=== PATIENT | female | born 1980 | race American Indian/Alaskan Native ===

== ENCOUNTER 2019-12-18 07:22 | Emergency (ER) | payer SELFPAY ==
[2019-12-18 09:29] VITALS: BP 146/88
--- NOTE | 2019-12-18 10:08 | XRay Report ---
LUMBAR SPINE 3 VIEWS INDICATION / CLINICAL INFORMATION: pain s/p fall. COMPARISON: None available. FINDINGS: VERTEBRAE: No acute fracture. No significant malalignment. DISC SPACES / FACET JOINTS:L5-S1 degenerative disc disease with disc space narrowing and vacuum disc phenomenon. Lower lumbar facet joint sclerosis. PARASPINAL SOFT TISSUES:No significant abnormality. ADDITIONAL FINDINGS: None. IMPRESSION: 1. No acute findings. 2. L5-S1 degenerative disc disease and lower lumbar facet joint arthropathy. Signer Name: Walt Lazar MD Signed: 12/18/2019 10:03 AM Workstation Name: [id number]
[2019-12-18] MEDS ORDERED: HYDROcodone/ACETAMINOPHEN 10-325MG TAB PO ONE (11:41)
--- NOTE | 2019-12-18 12:02 | Emergency Department Report ---
ED Fall HPI - General Chief Complaint: Back Pain/Injury Stated Complaint: LOW BACK PAIN Time Seen by Provider: 12/18/19 09:05 Source: patient Mode of arrival: Ambulatory - History of Present Illness Initial Comments: This is a 39-year-old female nontoxic, well nourished in appearance, no acute signs of distress presents to the ED with c/o of acute lower back pain. Patient stated that she had a fall and landed on her lower back at work 4 days ago. Patient denies any radiation of pain. Patient denies any trauma. Denies any bladder or bowel instability. Patient denies any urinary symptoms. Denies any fever, chills, nausea, vomiting, headache, stiff neck, chest pain or shortness of breath. Patient denies any numbness or tingling. Denies any allergies. Denies significant past medical history. MD Complaint: fall -: days(s) (4) Place Fall Occurred: work Loss of Consciousness: none Prolonged Down Time?: no Symptoms Prior to Fall: none Severity: mild Severity scale (0 -10): 8 Quality: aching Context: tripped/slipped Associated Symptoms: denies. denies: headache, neck pain, numbness, weakness, chest paint, shortness of breath, abdominal pain, hematuria, unable to walk, lightheaded, vertigo, confusion - Related Data Previous Rx's Medication Instructions Recorded Last Taken Type Cyclobenzaprine [Flexeril] 10 mg PO QHS PRN #10 tablet 12/18/19 Unknown Rx Naproxen 500 mg PO Q12H PRN #20 tablet 12/18/19 Unknown Rx Allergies Allergy/AdvReac Type Severity Reaction Status Date / Time No Known Allergies Allergy Unverified 12/18/19 07:26 ED Review of Systems ROS: Stated complaint: LOW BACK PAIN Other details as noted in HPI Constitutional: denies: chills, fever Eyes: denies: eye pain, eye discharge, vision change ENT: denies: ear pain, throat pain Respiratory: denies: cough, shortness of breath, wheezing Cardiovascular: denies: chest pain, palpitations Endocrine: no symptoms reported Gastrointestinal: denies: abdominal pain, nausea, diarrhea Genitourinary: denies: urgency, dysuria, discharge Musculoskeletal: back pain. denies: joint swelling, arthralgia Skin: denies: rash, lesions Neurological: denies: headache, weakness, paresthesias Psychiatric: denies: anxiety, depression Hematological/Lymphatic: denies: easy bleeding, easy bruising ED Past Medical Hx - Past Medical History Previous Medical History?: No - Surgical History Past Surgical History?: Yes Additional Surgical History: Hysterectomy. Right foot - Medications Home Medications: Home Medications Medication Instructions Recorded Confirmed Last Taken Type Cyclobenzaprine [Flexeril] 10 mg PO QHS PRN #10 tablet 12/18/19 Unknown Rx Naproxen 500 mg PO Q12H PRN #20 tablet 12/18/19 Unknown Rx ED Physical Exam - General Limitations: No Limitations General appearance: alert, in no apparent distress - Head Head exam: Present: atraumatic, normocephalic - Neck Neck exam: Present: normal inspection, full ROM. Absent: tenderness, meningismus, lymphadenopathy - Respiratory Respiratory exam: Present: normal lung sounds bilaterally. Absent: respiratory distress, wheezes, rales, rhonchi, stridor, chest wall tenderness, accessory muscle use, decreased breath sounds, prolonged expiratory - Cardiovascular Cardiovascular Exam: Present: regular rate, normal rhythm, normal heart sounds. Absent: bradycardia, tachycardia, irregular rhythm, systolic murmur, diastolic murmur, rubs, gallop - Extremities Exam Extremities exam: Present: normal inspection, full ROM, normal capillary refill. Absent: tenderness - Back Exam Back exam: Present: normal inspection, full ROM, paraspinal tenderness (lumbar paraspinal). Absent: tenderness, CVA tenderness (R), CVA tenderness (L), muscle spasm, vertebral tenderness, rash noted - Expanded Back Exam Expanded Back exam: Absent: saddle anesthesia Back exam: Negative Straight Leg Raising: Left, Right - Neurological Exam Neurological exam: Present: alert, oriented X3, normal gait - Psychiatric Psychiatric exam: Present: normal affect, normal mood - Skin Skin exam: Present: warm, dry, intact, normal color. Absent: rash ED Course Vital Signs 12/18/19 12/18/19 07:28 09:19 Temperature 97.9 F 98.6 F Pulse Rate 71 68 Respiratory 16 18 Rate Blood Pressure 138/89 146/88 O2 Sat by Pulse 100 100 Oximetry - Reevaluation(s) Reevaluation #1: 12/18/19 12:01 Patient is speaking in full sentences with no signs of distress noted. ED Medical Decision Making - Medical Decision Making This is a 39-year-old female that presents with low back strain. Patient is stable was examined by me. There is no spinal tenderness. There is no cauda equina syndrome during examination. No bladder or bowel instability. Xrays obtained and dictated by radiologist with no acute injuries or fracture. Patient is notified of the results with no questions noted by the patient. Patient received [place] in the ED which stated that her symptoms has resolved and subsided. Stated daugther will drive patient home after discharge due to possible drowsiness. Patient is discharged with muscle relaxant and Motrin. Patient was instructed not to operate any machinery while taking muscle relaxant as they cause her drowsiness. Patient was referred to Follow-up with a primary care doctor in 3-5 days or if symptoms worsen and continue return to emergency room as soon as possible. At time of discharge, the patient does not seem toxic or ill in appearance. No acute signs of distress noted. Patient agrees to discharge treatment plan of care. No further questions noted by the patient. This chart is dictated with using [employer] Dictation Program Critical care attestation.: If time is entered above; I have spent that time in minutes in the direct care of this critically ill patient, excluding procedure time. ED Disposition Clinical Impression: Low back strain Qualifiers: Encounter type: initial encounter Qualified Code(s): S39.012A - Strain of muscle, fascia and tendon of lower back, initial encounter Fall Qualifiers: Encounter type: initial encounter Qualified Code(s): W19.XXXA - Unspecified fall, initial encounter Disposition: DC- TO HOME OR SELFCARE Is pt being admited?: No Does the pt Need Aspirin: No Condition: Stable Instructions: Muscle Strain (ED), Cyclobenzaprine (By mouth) Additional Instructions: Follow-up with a primary care doctor in 3-5 days or if symptoms worsen and continue return to emergency room as soon as possible. Take ibuprofen and Flexeril as prescribed. Do not operate heavy machinery while taking Flexeril due to sedation Prescriptions: Cyclobenzaprine [Flexeril] 10 mg PO QHS PRN #10 tablet PRN Reason: Muscle Spasm Naproxen 500 mg PO Q12H PRN #20 tablet PRN Reason: Pain, Moderate (4-6) Referrals: IAM MOHAN [Primary Care Provider] - 3-5 Days [facility], [Referring] - 3-5 Days ISAEL NEGRETE MD [Staff Physician] - 3-5 Days [facility] [Provider Group] - 3-5 Days Forms: Work/School Release Form(ED)
--- NOTE | 2019-12-19 09:53 | XRay Report ---
XR spine thoracic 2V INDICATION / CLINICAL INFORMATION: Back pain after fall. COMPARISON: None available. FINDINGS: BONES/JOINT(S): No acute fracture or subluxation. Mild diffuse spondylosis with small anterior and la teral osteophytes. SOFT TISSUES: No significant abnormality. ADDITIONAL FINDINGS: None. Signer Name: Carlos Mckee MD Signed: 12/18/2019 9:44 AM Workstation Name: [id number]
== END 2019-12-18 12:13 | disposition home or self-care (01) ==
LOC: ED 07:22
DX: S39.012A Strain of muscle, fascia and tendon of lower back, initial encounter (principal); Z79.899 Other long term (current) drug therapy; Z90.710 Acquired absence of both cervix and uterus; W18.30XA Fall on same level, unspecified, initial encounter; Y93.89 Activity, other specified; Y92.89 Other specified places as the place of occurrence of the external cause; Y99.8 Other external cause status
CPT/HCPCS: 72070; 72100; 99283

== ENCOUNTER 2020-06-07 07:29 | Emergency (ER) | payer OTHER ==
[2020-06-07 07:51] VITALS: BP 141/96
[2020-06-07] MEDS ORDERED: HYDROcodone/ACETAMINOPHEN 5-325 MG TAB PO ONE (08:17)
--- NOTE | 2020-06-07 08:59 | XRay Report ---
LEFT KNEE 3 VIEW(S) INDICATION / CLINICAL INFORMATION: fall left knee pain COMPARISON: None available. FINDINGS: BONES / JOINT(S): No acute fracture or subluxation. No significant arthritis. SOFT TISSUES: No significant abnormality. ADDITIONAL FINDINGS: None. IMPRESSION: No acute osseous abnormality. Signer Name: Johnathon Choudhary MD Signed: 06/07/2020 8:54 AM Workstation Name: [id number]
--- NOTE | 2020-06-07 09:35 | Vascular Lab Report ---
DUPLEX DOPPLER LOWER EXTREMITY VEINS, BILATERAL INDICATION / CLINICAL INFORMATION: LLE edema. TECHNIQUE: Duplex doppler imaging was performed through the veins of both lower extremities using venous surekha woody and other maneuvers. COMPARISON: None available. FINDINGS: RIGHT COMMON FEMORAL VEIN: Negative. RIGHT FEMORAL VEIN: Negative. RIGHT POPLITEAL VEIN: Negative. RIGHT CALF VEINS: Negative. LEFT COMMON FEMORAL VEIN: Negative. LEFT FEMORAL VEIN: Negative. LEFT POPLITEAL VEIN: Negative. LEFT CALF VEINS: Negative. ADDITIONAL FINDINGS: None. IMPRESSION: No sonographic evidence for DVT in either lower extremity. Signer Name: Johnathon Choudhary MD Signed: 06/07/2020 9:31 AM Workstation Name: [email or web address] [email or web address]
--- NOTE | 2020-06-07 09:48 | Emergency Department Report ---
ED Extremity Problem HPI - General Chief complaint: Extremity Injury, Lower Stated complaint: LT HIP/KNEE Time Seen by Provider: 06/07/20 07:57 Source: patient, family Mode of arrival: Ambulatory Limitations: No Limitations - History of Present Illness Initial comments: Patient is a 40-year-old female presents emergency room with complaints of left knee pain that began 3 days ago. She states that she was walking down the steps and felt her knee give out on her and she fell onto her left knee. She states that she has had pain since then. She states that she is ambulatory. Patient states that for about a week and a half she has noticed left lower leg edema. She denies any calf pain, numbness, weakness. Patient states that she did have an injection in this knee approximately 2 months ago. She denies any past medical history. No allergies to medications. She states that she had a hysterectomy. Severity scale (0 -10): 6 - Related Data Previous Rx's Medication Instructions Recorded Last Taken Type Cyclobenzaprine [Flexeril 10 MG 10 mg PO QHS PRN #10 tablet 12/18/19 Unknown Rx TAB] Naproxen 500 mg PO Q12H PRN #20 tablet 12/18/19 Unknown Rx Apixaban [Eliquis] 2.5 mg PO Q12HR #30 tablet 04/28/20 Unknown Rx Ascorbic Acid [Vitamin C] 1,000 mg PO BID #60 tablet 04/28/20 Unknown Rx Zinc Sulfate 220 mg PO DAILY #30 tablet 04/28/20 Unknown Rx dexAMETHasone [Decadron] 6 mg PO Q12H #6 tablet 04/28/20 Unknown Rx Menthol/Camphor [Phyllis [place] 1 applicatio TP BID #1 oint...g. 06/07/20 Unknown Rx Ointment] Naproxen [EC-Naprosyn] 500 mg PO BID PRN #14 tablet. 06/07/20 Unknown Rx Allergies Allergy/AdvReac Type Severity Reaction Status Date / Time No Known Allergies Allergy Unverified 12/18/19 07:26 ED Review of Systems ROS: Stated complaint: LT HIP/KNEE Other details as noted in HPI Comment: All other systems reviewed and negative ED Past Medical Hx - Past Medical History Previous Medical History?: No Hx Congestive Heart Failure: No Hx Diabetes: No Hx Asthma: No Hx COPD: No Hx HIV: No Additional medical history: COVID19 - Surgical History Past Surgical History?: No Additional Surgical History: Hysterectomy. Right foot - Social History Smoking Status: Never Smoker Substance Use Type: None - Medications Home Medications: Home Medications Medication Instructions Recorded Confirmed Last Taken Type Cyclobenzaprine [Flexeril 10 MG 10 mg PO QHS PRN #10 tablet 12/18/19 Unknown Rx TAB] Naproxen 500 mg PO Q12H PRN #20 tablet 12/18/19 Unknown Rx Apixaban [Eliquis] 2.5 mg PO Q12HR #30 tablet 04/28/20 Unknown Rx Ascorbic Acid [Vitamin C] 1,000 mg PO BID #60 tablet 04/28/20 Unknown Rx Zinc Sulfate 220 mg PO DAILY #30 tablet 04/28/20 Unknown Rx dexAMETHasone [Decadron] 6 mg PO Q12H #6 tablet 04/28/20 Unknown Rx Menthol/Camphor [Phyllis [place] 1 applicatio TP BID #1 oint...g. 06/07/20 Unknown Rx Ointment] Naproxen [EC-Naprosyn] 500 mg PO BID PRN #14 tablet.dr 06/07/20 Unknown Rx ED Physical Exam - General Limitations: No Limitations General appearance: alert, in no apparent distress - Head Head exam: Present: atraumatic, normocephalic - Eye Eye exam: Present: normal appearance - ENT ENT exam: Present: mucous membranes moist - Extremities Exam Extremities exam: Present: other (ttp to the left anterior knee, no obvious deformity, FROM of the LLE with discomfort upon flexion of the left knee, there is mild non pitting edema present to the LLE, no calf ttp, no skin changes, warm and dry, neurovascularly intact, 2+ strong distal pulses) - Neurological Exam Neurological exam: Present: alert, oriented X3 - Psychiatric Psychiatric exam: Present: normal affect, normal mood - Skin Skin exam: Present: warm, dry, intact ED Course Vital Signs 06/07/20 06/07/20 07:40 07:50 Temperature 97.9 F Pulse Rate 84 Respiratory 16 Rate Blood Pressure 149/104 Blood Pressure 141/96 [Left] O2 Sat by Pulse 100 Oximetry ED Medical Decision Making - Radiology Data Radiology results: report reviewed LEFT KNEE 3 VIEW(S) INDICATION / CLINICAL INFORMATION: fall left knee pain COMPARISON: None available. FINDINGS: BONES / JOINT(S): No acute fracture or subluxation. No significant arthritis. SOFT TISSUES: No significant abnormality. ADDITIONAL FINDINGS: None. IMPRESSION: No acute osseous abnormality. Signer Name: Sonny Choudhary MD Signed: 06/07/2020 8:54 AM Workstation Name: [id number] Transcribed By: Dictated By: SONNY CHOUDHARY Electronically Authenticated By: SONNY CHOUDHARY Signed Date/Time: 06/07/20853 DD/ 2 TD/TT: DUPLEX DOPPLER LOWER EXTREMITY VEINS, BILATERAL INDICATION / CLINICAL INFORMATION: LLE edema. TECHNIQUE: Duplex doppler imaging was performed through the veins of both lower extremities using venous compression and other maneuvers. COMPARISON: None available. FINDINGS: RIGHT COMMON FEMORAL VEIN: Negative. RIGHT FEMORAL VEIN: Negative. RIGHT POPLITEAL VEIN: Negative. RIGHT CALF VEINS: Negative. LEFT COMMON FEMORAL VEIN: Negative. LEFT FEMORAL VEIN: Negative. LEFT POPLITEAL VEIN: Negative. LEFT CALF VEINS: Negative. ADDITIONAL FINDINGS: None. IMPRESSION: No sonographic evidence for DVT in either lower extremity. Signer Name: Sonny Choudhary MD Signed: 06/07/2020 9:31 AM Workstation Name: [id number] Transcribed By: SS Dictated By: SONNY CHOUDHARY Electronically Authenticated By: SONNY CHOUDHARY Signed Date/Time: 06/07/20930 DD/ 9 TD/TT: - Medical Decision Making Patient is a 40-year-old female presents emergency room with complaints of left knee pain that began 3 days ago. She states that she was walking down the steps and felt her knee give out on her and she fell onto her left knee. She states that she has had pain since then. She states that she is ambulatory. Patient states that for about a week and a half she has noticed left lower leg edema. She denies any calf pain, numbness, weakness. Patient states that she did have an injection in this knee approximately 2 months ago. She denies any past medical history. No allergies to medications. She states that she had a hysterectomy. on exam: ttp to the left anterior knee, no obvious deformity, FROM of the LLE with discomfort upon flexion of the left knee, there is mild non pitting edema present to the LLE, no calf ttp, no skin changes, warm and dry, neurovascularly intact, 2+ strong distal pulses. XR left knee: No acute osseous abnormality. doppler US LLE: No sonographic evidence for DVT in either lower extremity. discussed all results with pt and answered questions. discussed the need for orthopedic follow up. pt given prescription for tiger balm ointment and naproxen. advised pt Please use medication as prescribed. May use ice for 15 minutes at a time, rest, elevation of the leg. Follow-up with an orthopedic doctor. Follow-up with a primary care doctor. Return to emergency room for any new or worsening symptoms. - Differential Diagnosis strain, sprain,fx, dislocation, effusion, DJD, DVT, bakers cyst Critical care attestation.: If time is entered above; I have spent that time in minutes in the direct care of this critically ill patient, excluding procedure time. ED Disposition Clinical Impression: Leg edema, left Left knee pain Qualifiers: Chronicity: acute Qualified Code(s): M25.562 - Pain in left knee Fall Qualifiers: Encounter type: initial encounter Qualified Code(s): W19.XXXA - Unspecified fall, initial encounter Disposition: TO HOME OR SELFCARE Is pt being admited?: No Does the pt Need Aspirin: No Condition: Stable Instructions: Leg Edema (ED), Knee Pain (ED), RICE Therapy (ED) Additional Instructions: Please use medication as prescribed. May use ice for 15 minutes at a time, rest, elevation of the leg. Follow-up with an orthopedic doctor. Follow-up with a primary care doctor. Return to emergency room for any new or worsening symptoms. Prescriptions: Naproxen [EC-Naprosyn] 500 mg PO BID PRN #14 tablet.dr CRESPO Reason: pain Menthol/Camphor [Phyllis [place] Ointment] 1 applicatio TP BID #1 oint...g. Referrals: SILVIA JOHNSON MD [Staff Physician] - 2-3 Days [facility] [Provider Group] - 2-3 Days your, primary care doctor [Other] - 2-3 Days Time of Disposition: 09:47 Print Language: HUNGARIAN
== END 2020-06-07 10:00 | disposition home or self-care (01) ==
LOC: ED 07:29
DX: M25.562 Pain in left knee (principal); M79.89 Other specified soft tissue disorders; Z79.899 Other long term (current) drug therapy; Z90.710 Acquired absence of both cervix and uterus; Z98.890 Other specified postprocedural states; W18.30XA Fall on same level, unspecified, initial encounter; Y93.89 Activity, other specified; Y92.89 Other specified places as the place of occurrence of the external cause; Y99.8 Other external cause status

== ENCOUNTER 2020-10-29 05:42 | Emergency (ER) | payer OTHER ==
--- NOTE | 2020-10-29 06:07 | Emergency Department Report ---
ED General Adult HPI - General Chief complaint: Dyspnea/Respdistress Stated complaint: SOB/RAPID HEARTBEAT/BODYACHES PUI?: No Time Seen by Provider: 10/29/20 06:04 Source: patient, RN notes reviewed, old records reviewed Mode of arrival: Ambulatory Limitations: No Limitations - History of Present Illness Initial comments: The patient was evaluated in the emergency department for symptoms described in the history of present illness. He/she was evaluated in the context of the global COVID-19 pandemic, which necessitated consideration that the patient might be at risk for infection with the virus that causes COVID-19. [facility] protocols and algorithms that pertain to the evaluation of patients at risk for COVID-19 are in a state of rapid change based on information released by regulatory bodies including the CDC and federal and state organizations. These policies and algorithms were followed during the patient's care in the emergency department. Please note that these policies, procedures and recommendations changed on a rapid basis. During the entire history and physical examination, I had on complete personal protective equipment. Primary CARE doctor: Silvino Singh The patient is a 40-year-old female. She is not known to myself previously. She has a history of obesity, and question obstructive sleep apnea. She has not had a formal sleep study or sleep diagnosis made. Patient was diagnosed with COVID-19 in April 2020. She presents to the ER with complaint of 3 to 4 days of intermittent chest tightness, heart racing, body aches, and shortness of breath. No headache, no loss of taste or smell, no abdominal pain, no vomiting, no diarrhea, no posterior leg pain/leg swelling, no urinary symptoms, no fever. No travel, surgery, oral contraceptive use. She has a central chest wall pain, which is intermittent, does not radiate to the back, arms or neck. The patient states that she sleeps at home in bed, with her significant other. She reports that she snores quite a bit at night, and feels like sleep is not restful. She states that she falls asleep and dozes off frequently during the day. Again, no formal sleep study. -: Gradual, days(s) Location: chest, left, right, upper extremity, lower extremity Quality: aching Consistency: intermittent Improves with: rest Worsens with: movement - Related Data Previous Rx's Medication Instructions Recorded Last Taken Type Apixaban [Eliquis] 2.5 mg PO Q12HR #30 tablet 04/28/20 Unknown Rx Ascorbic Acid [Vitamin C] 1,000 mg PO BID #60 tablet 04/28/20 Unknown Rx Zinc Sulfate 220 mg PO DAILY #30 tablet 04/28/20 Unknown Rx dexAMETHasone [Decadron] 6 mg PO Q12H #6 tablet 04/28/20 Unknown Rx Menthol/Camphor [[place] 1 applicatio TP BID #1 oint...g. 06/07/20 Unknown Rx Ointment] Docusate Sodium [Colace] 100 mg PO BID PRN #60 capsule 10/29/20 Unknown Rx Ferrous Sulfate [Ferrous Sulfate 324 mg PO TID #90 tablet.dr 10/29/20 Unknown Rx 324 MG] Allergies Allergy/AdvReac Type Severity Reaction Status Date / Time No Known Allergies Allergy Unverified 12/18/19 07:26 ED Review of Systems ROS: Stated complaint: SOB/RAPID HEARTBEAT/BODYACHES Other details as noted in HPI Constitutional: denies: fever Eyes: denies: eye discharge ENT: congestion Respiratory: shortness of breath Cardiovascular: palpitations, other (Chest tightness, no pain). denies: chest pain Gastrointestinal: denies: abdominal pain, nausea, vomiting Genitourinary: denies: dysuria Musculoskeletal: myalgia Neurological: weakness Hematological/Lymphatic: denies: easy bleeding ED Past Medical Hx - Past Medical History Previous Medical History?: Yes Hx Congestive Heart Failure: No Hx Diabetes: No Hx Asthma: No Hx COPD: No Hx HIV: No Additional medical history: COVID19 - Surgical History Past Surgical History?: Yes Additional Surgical History: Hysterectomy. Right foot - Social History Smoking Status: Never Smoker Substance Use Type: None - Medications Home Medications: Home Medications Medication Instructions Recorded Confirmed Last Taken Type Apixaban [Eliquis] 2.5 mg PO Q12HR #30 tablet 04/28/20 Unknown Rx Ascorbic Acid [Vitamin C] 1,000 mg PO BID #60 tablet 04/28/20 Unknown Rx Zinc Sulfate 220 mg PO DAILY #30 tablet 04/28/20 Unknown Rx dexAMETHasone [Decadron] 6 mg PO Q12H #6 tablet 04/28/20 Unknown Rx Menthol/Camphor [[place] 1 applicatio TP BID #1 oint...g. 06/07/20 Unknown Rx Ointment] Docusate Sodium [Colace] 100 mg PO BID PRN #60 capsule 10/29/20 Unknown Rx Ferrous Sulfate [Ferrous Sulfate 324 mg PO TID #90 tablet. 10/29/20 Unknown Rx 324 MG] ED Physical Exam - General Limitations: No Limitations General appearance: alert, in no apparent distress, obese - Head Head exam: Present: atraumatic, normocephalic - Eye Eye exam: Present: normal appearance, EOMI. Absent: nystagmus - ENT ENT exam: Present: normal exam, normal orophraynx, mucous membranes moist, normal external ear exam - Neck Neck exam: Present: normal inspection, full ROM. Absent: tenderness, meningismus - Respiratory Respiratory exam: Present: normal lung sounds bilaterally, chest wall tenderness. Absent: respiratory distress, wheezes, rales, rhonchi, stridor - Cardiovascular Cardiovascular Exam: Present: normal rhythm, tachycardia, normal heart sounds. Absent: systolic murmur, diastolic murmur, rubs, gallop - GI/Abdominal GI/Abdominal exam: Present: soft, normal bowel sounds. Absent: distended, tenderness, guarding, rebound, rigid, pulsatile mass - Rectal Rectal exam: Present: normal inspection, normal rectal tone (Anal fissure at 6:00), heme (+) stool, bloody stool, other (Chaperoned RESHMA [place]) - Extremities Exam Extremities exam: Present: normal inspection, full ROM, other (2+ pulses noted in the bilateral upper and lower extremities. There is no palpable cord. negative Homans sign. Muscular compartments are soft. The pelvis is stable.). Absent: pedal edema, calf tenderness - Back Exam Back exam: Present: normal inspection, full ROM. Absent: tenderness, CVA tenderness (R), CVA tenderness (L), paraspinal tenderness, vertebral tenderness - Neurological Exam Neurological exam: Present: alert, oriented X3, normal gait, other (No facial droop. Tongue midline. Extraocular movements intact bilaterally. Facial sensation intact to light touch in V1, V2, V3 distribution bilaterally. 5 and a 5 strength in 4 extremities. Sensation intact to light touch in 4 extremities.). Absent: motor sensory deficit - Psychiatric Psychiatric exam: Present: normal affect, normal mood - Skin Skin exam: Present: warm, dry, intact, normal color. Absent: rash ED Course Vital Signs 10/29/20 10/29/20 10/29/20 05:46 06:27 08:55 Temperature 98.0 F 97.8 F Pulse Rate 110 H 102 H 87 Respiratory 14 28 H 20 Rate Blood Pressure 150/93 Blood Pressure 146/86 [Right] O2 Sat by Pulse 96 98 Oximetry - Reevaluation(s) Reevaluation #1: 10/29/20 06:24 Differential diagnosis, including but not limited to: Right-sided heart failure, pneumonia, pulmonary embolism, pulmonary hypertension, obstructive sleep apnea, electrolyte derangement, thyroid derangement, costochondritis Assessment and plan: 40-year-old female who is morbidly obese, with history that suggests undiagnosed obstructive sleep apnea, likely experiencing natural history of untreated obstructive sleep apnea, including shortness of breath and heart racing. However, she is fairly obese, and markedly tachycardic, with trial of ambulation, heart rate increased to 144 bpm, although she did not desaturate. Patient had Covid in April 2020, repeat case of Covid is very unlikely. Therefor e, we will place on bus monitor, obtain EKG, appropriate laboratory studies, x-ray of the chest, and send D-dimer to risk stratify for pulmonary embolism. Low pretest probability for pulmonary embolism, patient is not currently tachypneic, or hypoxic, she is tachycardic. Patient denies discussed the need to lose weight, and to follow-up with an outpatient sleep physician for formal obstructive sleep apnea diagnostic testing, if no emergent condition identified today in the emergency room. The patient is at low risk for major adverse cardiac event as per heart score. Symptoms present for 3 to 4 days, therefore, as per the [employer] clinical policy, acute myocardial infarction may be excluded with 1 set of troponins/cardiac enzymes. She is is not currently tachypneic or hypoxic, who denies DVT and pulmonary embolism risk factors, who is low risk by Wells criteria for pulmonary embolism, EKG unchanged x2 ( prior), troponin negative x 1, symptoms present for 3-4 ]days. Patient has equal pulses in the upper and lower extremities, no pulsatile abd ominal mass, and an unremarkable x-ray of the chest, therefore, aortic disease is very unlikely. Patient at low risk for major adverse cardiac event as per heart score. Given reproducibility, history and physical, do not have a high suspicion for GERD, gastritis, hiatal hernia at this time. Pneumonia is unlikely given history, physical, and x-ray findings. I find coronary artery disease of significance to be unlikely. As per this institutions policy, procedure, protocol, patient's information is transmitted to [facility] cardiology, whereby patient should be contacted within the next 2 days to arrange close outpatient follow-up Reevaluation #2: 10/29/20 08:30 Tachycardia is resolved. Laboratory studies reviewed and appreciated. Additional history obtained from patient. States that she has been having intermittent bloody stools over the past month. Her outpatient primary care doctor sent a stool sample which was reportedly guaiac negative. Patient has not had a colonoscopy. Hemoglobin, hematocrit slightly decreased when compared to prior laboratory studies. Performed rectal examination with physical chemist, RESHMA WHITE, patient found to have anal fissure at 6:00, with dark red blood, guaiac positive. Reached out to gastroenterology on-call, Dr. Mahogany Verde, And have discussed the patient's history, physical, pertinent laboratory studies, physical exam findings and imaging findings. Assuming no pulmonary embolism is identified on CT angiogram, the aforementioned hosiery mender advises that it is reasona ble to have the patient closely follow-up as an outpatient, start sits baths, iron sulfate supplementation, he indicates that he will have his group contact the patient to arrange close outpatient follow-up. 10/29/20 10:13 Final reassessment. Tachycardia resolved. CT scan of the chest negative for acute findings. Patient updated on plan of care. She verbalizes understanding. She is amenable to outpatient follow-up. We have discussed the plan of care and return precautions. She verbalizes understanding peer ED Medical Decision Making - Lab Data Result diagrams: 10/29/20 Unknown 10/29/20 Unknown Vital Signs 10/29/20 05:46 Temperature 98.0 F Pulse Rate 110 H Respiratory 14 Rate Blood Pressure 150/93 O2 Sat by Pulse 96 Oximetry Lab Results 10/29/20 10/29/20 10/29/20 Range/Units Unknown Unknown Unknown WBC (4.5-11.0) K/mm3 RBC (3.65-5.03) M/mm3 Hgb (10.1-14.3) gm/dl Hct (30.3-42.9) % MCV (79-97) fl MCH (28-32) pg MCHC (30-34) % RDW (13.2-15.2) % Plt Count (140-440) K/mm3 PT 12.5 (12.2-14.9) Sec. INR 0.94 (0.87-1.13) D-Dimer 257.64 H (0-234) ng/mlDDU Sodium 137 (137-145) mmol/L Potassium 3.5 L (3.6-5.0) mmol/L Chloride 96.7 L (98-107) mmol/L Carbon Dioxide 28 (22-30) mmol/L Anion Gap 16 mmol/L BUN 21 H (7-17) mg/dL Creatinine 1.0 (0.6-1.2) mg/dL Estimated GFR > 60 ml/min BUN/Creatinine Ratio 21 % Glucose 107 H (65-100) mg/dL Calcium 9.0 (8.4-10.2) mg/dL Magnesium 2.40 H (1.7-2.3) mg/dL Total Bilirubin 0.40 (0.1-1.2) mg/dL AST 25 (5-40) units/L ALT 12 (7-56) units/L Alkaline Phosphatase 77 (35-129) units/L Total Creatine Kinase 181 H (30-135) units/L Troponin T < 0.010 (0.00-0.029) ng/mL NT-Pro-B Natriuret Pep < 5 (0-450) pg/mL Total Protein 7.6 (6.3-8.2) g/dL Albumin 3.9 (3.9-5) g/dL Albumin/Globulin Ratio 1.1 % TSH 0.626 (0.270-4.200) mlU/mL HCG, Quant (0-4) mIU/mL 10/29/20 10/29/20 Range/Units Unknown Unknown WBC 6.2 (4.5-11.0) K/mm3 RBC 4.10 (3.65-5.03) M/mm3 Hgb 9.8 L (10.1-14.3) gm/dl Hct 28.2 L (30.3-42.9) % MCV 69 L (79-97) fl MCH 24 L (28-32) pg MCHC 35 H (30-34) % RDW 17.1 H (13.2-15.2) % Plt Count 385 (140-440) K/mm3 PT (12.2-14.9) Sec. INR (0.87-1.13) D-Dimer (0-234) ng/mlDDU Sodium (137-145) mmol/L Potassium (3.6-5.0) mmol/L Chloride (98-107) mmol/L Carbon Dioxide (22-30) mmol/L Anion Gap mmol/L BUN (7-17) mg/dL Creatinine (0.6-1.2) mg/dL Estimated GFR ml/min BUN/Creatinine Ratio % Glucose (65-100) mg/dL Calcium (8.4-10.2) mg/dL Magnesium (1.7-2.3) mg/dL Total Bilirubin (0.1-1.2) mg/dL AST (5-40) units/L ALT (7-56) units/L Alkaline Phosphatase (35-129) units/L Total Creatine Kinase (30-135) units/L Troponin T (0.00-0.029) ng/mL NT-Pro-B Natriuret Pep (0-450) pg/mL Total Protein (6.3-8.2) g/dL Albumin (3.9-5) g/dL Albumin/Globulin Ratio % TSH (0.270-4.200) mlU/mL HCG, Quant < 2 (0-4) mIU/mL Vital Signs 10/29/20 10/29/20 05:46 06:27 Temperature 98.0 F Pulse Rate 110 H 102 H Respiratory 14 28 H Rate Blood Pressure 150/93 O2 Sat by Pulse 96 Oximetry - EKG Data -: EKG Interpreted by Nc EKG shows normal: sinus rhythm Rate: tachycardia - EKG Data Interpretation: unchanged when compared t (04/24/2020) 10/29/20 06:24 Sinus rhythm, tachycardia, normal axis, QTC 417 ms, borderline left ventricular hypertrophy, lead I, low voltage in the lateral leads. This EKG is abnormal. This EKG is not a STEMI. - Radiology Data Radiology results: pending, report reviewed, image reviewed CHEST 1 VIEW 10/29/2020 5:30 AM INDICATION / CLINICAL INFORMATION: dyspnea. COMPARISON: 04/23/2020 FINDINGS: SUPPORT DEVICES: None. HEART / MEDIASTINUM: No significant abnormality. LUNGS / PLEURA: No significant pulmonary or pleural abnormality. No pneumothorax. ADDITIONAL FINDINGS: No significant additional findings. IMPRESSION: 1. No acute findings. Signer Name: Jr Rm MD Signed: 10/29/2020 5:33 AM Workstation Name: [id number] CTA CHEST WITH CONTRAST INDICATION / CLINICAL INFORMATION: acute dyspnea, + d dimer, tachycardia 100 ML OMNI 350. TECHNIQUE: Axial CT images were obtained t hrough the chest after injection of IV contrast. 3 plane MIP and/or 3D reconstructions were produced. All CT scans at this location are performed using CT dose reduction for ALARA by means of automated exposure control. COMPARISON: None available. FINDINGS: PULMONARY ARTERIES: No pulmonary emboli. THORACIC AORTA: No significant abnormality. HEART: Upper normal size. CORONARY ARTERY CALCIFICATION: None. MEDIASTINUM / CLAIRE: No significant abnormality. PLEURA: No pleural effusion. No pneumothorax. LUNGS: No acute air space or interstitial disease. ADDITIONAL FINDINGS: None. UPPER ABDOMEN: No acute findings. SKELETAL STRUCTURES: No significant osseous abnormality. IMPRESSION: 1. No CT evidence for pulmonary embolism. 2. No acute findings. Signer Name: David Diaz MD Signed: 10/29/2020 8:17 AM Workstation Name: [id number] Critical care attestation.: If time is entered above; I have spent that time in minutes in the direct care of this critically ill patient, excluding procedure time. ED Disposition Clinical Impression: Anal fissure, Anemia, SOB (shortness of breath), Obesity, History of GI bleed Disposition: -01 TO HOME OR SELFCARE Is pt being admited?: No Does the pt Need Aspirin: No Condition: Good Instructions: Shortness of Breath, Adult, [id number], Obesity Hypoventilation Syndrome, Exercising to Lose Weight, Anal Fissure, Adult Additional Instructions: Recommend that patient not take metformin medication for the next 2 days, if patient takes this medication. Patient most likely has obstructive sleep apnea. Recommend aggressive weight l oss, avoidance of simple carbohydrates and sugary drinks, consumption of 6 cups of water per day, and consumption of plenty of fiber, vegetables, and lean protein. Recommend follow-up with a pulmonary/sleep specialist, such as Dr. Walker, within the next 7 to 10 days. Long-term complications of obstructive sleep apnea include heart attack, stroke, disability, loss of quality of life. Rectal examination suggested anal fissure. Recommend to the aforementioned diet lifestyle modifications. Patient may also participate in sitz bath's as needed. We recommend follow-up with a hosiery mender, such as Dr. Verde, within the next 7 days. Patient will be started on iron sulfate supplementation. Iron sulfate may cause cramping, constipation, and black tarry stool. For the time being, avoid consumption of Motrin, ibuprofen, Naprosyn, Aleve, heavy and spicy foods, and alcohol. Please return to the emergency room right away with new pain, worsened pain, migration of pain, projectile vomiting, change in mental status, confusion, inability to tolerate liquid feeds, new, worsened or different symptoms not present on the initial emergency room evaluation. Referrals: CYNTHIA VERDE MD [Staff Physician] - 3-5 Days ROD WALKER MD [Staff Physician] - 3-5 Days Heart Score - HEART Score History: Slightly suspicious EKG: Non-specific Age: < 45 Risk factors: 1-2 risk factors Troponin: < normal limit HEART Score: 2 - Critical Actions Critical Actions: 0-3 pts:0.9-1.7%risk of adverse cardiac event.Candidate for discharge
--- NOTE | 2020-10-29 06:08 | Emergency Department Report ---
ED General Adult HPI - General Chief complaint: Dyspnea/Respdistress Stated complaint: SOB/RAPID HEARTBEAT/BODYACHES Time Seen by Provider: 10/29/20 06:04 Source: patient Mode of arrival: Ambulatory Limitations: No Limitations - Related Data Previous Rx's Medication Instructions Recorded Last Taken Type Cyclobenzaprine [Flexeril 10 MG 10 mg PO QHS PRN #10 tablet 12/18/19 Unknown Rx TAB] Naproxen 500 mg PO Q12H PRN #20 tablet 12/18/19 Unknown Rx Apixaban [Eliquis] 2.5 mg PO Q12HR #30 tablet 04/28/20 Unknown Rx Ascorbic Acid [Vitamin C] 1,000 mg PO BID #60 tablet 04/28/20 Unknown Rx Zinc Sulfate 220 mg PO DAILY #30 tablet 04/28/20 Unknown Rx dexAMETHasone [Decadron] 6 mg PO Q12H #6 tablet 04/28/20 Unknown Rx Menthol/Camphor [[place] 1 applicatio TP BID #1 oint...g. 06/07/20 Unknown Rx Ointment] Naproxen [EC-Naprosyn] 500 mg PO BID PRN #14 tablet. 06/07/20 Unknown Rx Allergies Allergy/AdvReac Type Severity Reaction Status Date / Time No Known Allergies Allergy Unverified 12/18/19 07:26 ED Review of Systems ROS: Stated complaint: SOB/RAPID HEARTBEAT/BODYACHES Other details as noted in HPI ED Past Medical Hx - Past Medical History Previous Medical History?: Yes Hx Congestive Heart Failure: No Hx Diabetes: No Hx Asthma: No Hx COPD: No Hx HIV: No Additional medical history: COVID19 - Surgical History Past Surgical History?: Yes Additional Surgical History: Hysterectomy. Right foot - Social History Smoking Status: Never Smoker Substance Use Type: None - Medications Home Medications: Home Medications Medication Instructions Recorded Confirmed Last Taken Type Cyclobenzaprine [Flexeril 10 MG 10 mg PO QHS PRN #10 tablet 12/18/19 Unknown Rx TAB] Naproxen 500 mg PO Q12H PRN #20 tablet 12/18/19 Unknown Rx Apixaban [Eliquis] 2.5 mg PO Q12HR #30 tablet 04/28/20 Unknown Rx Ascorbic Acid [Vitamin C] 1,000 mg PO BID #60 tablet 07/28/20 Unknown Rx Zinc Sulfate 220 mg PO DAILY #30 tablet 04/28/20 Unknown Rx dexAMETHasone [Decadron] 6 mg PO Q12H #6 tablet 04/28/20 Unknown Rx Menthol/Camphor [[place] 1 applicatio TP BID #1 oint...g. 06/07/20 Unknown Rx Ointment] Naproxen [EC-Naprosyn] 500 mg PO BID PRN #14 tablet. 06/07/20 Unknown Rx ED Physical Exam - General Limitations: No Limitations ED Course Vital Signs 10/29/20 05:46 Temperature 98.0 F Pulse Rate 110 H Respiratory 14 Rate Blood Pressure 150/93 O2 Sat by Pulse 96 Oximetry Critical care attestation.: If time is entered above; I have spent that time in minutes in the direct care of this critically ill patient, excluding procedure time. ED Disposition Condition: Stable Referrals: JESUS GALDAMEZ MD [Primary Care Provider] - 3-5 Days
[2020-10-29] MEDS ORDERED: ACETAMINOPHEN 325 MG TAB PO ONE (06:23)
--- NOTE | 2020-10-29 06:37 | XRay Report ---
CHEST 1 VIEW 10/29/2020 5:30 AM INDICATION / CLINICAL INFORMATION: dyspnea. COMPARISON: 04/23/2020 FINDINGS: SUPPORT DEVICES: None. HEART / MEDIASTINUM: No significant abnormality. LUNGS / PLEURA: No significant pulmonary or pleural abnormality. No pneumothorax. ADDITIONAL FINDINGS: No significant additional findings. IMPRESSION: 1. No acute findings. Signer Name: Jr Rm MD Signed: 10/29/2020 6:33 AM Workstation Name: [id number]
[2020-10-29] MEDS ORDERED: SODIUM CHLORIDE 0.9% 500 ML 500 ML IV ONE (06:39)
[2020-10-29 07:05] LABS: Hematocrit 28.2 % (30.3-42.9); Hemoglobin 9.8 gm/dl (10.1-14.3); Mean Corpuscular HGB Conc 35 % (30-34); Platelet Count 385 K/mm3 (140-440); Red Cell Distribution Width 17.1 % (13.2-15.2)
[2020-10-29 07:10] LABS: Mean Corpuscular Volume 69 fl (79-97)
[2020-10-29 07:16] LABS: INR 0.94 (0.87-1.13)
[2020-10-29 07:33] LABS: Alanine Aminotransferase 12 units/L (7-56); Albumin 3.9 g/dL (3.9-5); BUN/Creatinine Ratio 21; Blood Urea Nitrogen 21 mg/dL (7-17); Hemolysis Index 92
--- NOTE | 2020-10-29 09:21 | Cat Scan Report ---
CTA CHEST WITH CONTRAST INDICATION / CLINICAL INFORMATION: acute dyspnea, + d dimer, tachycardia 100 ML OMNI 350. TECHNIQUE: Axial CT images were obtained through the chest after injection of IV contrast. 3 plane PA P and/or 3D reconstructions were produced. All CT scans at this location are performed using CT dose reduction for ALARA by means of automated exposure control. COMPARISON: None available. FINDINGS: PULMONARY ARTERIES: No pulmonary emboli. THORACIC AORTA: No significant abnormality. HEART: Upper normal size. CORONARY ARTERY CALCIFICATION: None. MEDIASTINUM / CLAIRE: No significant abnormality. PLEURA: No pleural effusion. No pneumothorax. LUNGS: No acute air space or interstitial disease. ADDITIONAL FINDINGS: None. UPPER ABDOMEN: No acute findings. SKELETAL STRUCTURES: No significant osseous abnormality. IMPRESSION: 1. No CT evidence for pulmonary embolism. 2. No acute findings. Signer Name: David Diaz MD Signed: 10/29/2020 9:17 AM Workstation Name: [id number]
[2020-10-29 10:42] VITALS: BP 121/77
== END 2020-10-29 10:45 | disposition home or self-care (01) ==
LOC: ED 05:42
DX: K60.2 Anal fissure, unspecified (principal); D64.9 Anemia, unspecified; K92.2 Gastrointestinal hemorrhage, unspecified; R06.02 Shortness of breath; E66.9 Obesity, unspecified; Z68.43 Body mass index [BMI] 50.0-59.9, adult; Z90.710 Acquired absence of both cervix and uterus; Z98.890 Other specified postprocedural states; Z79.899 Other long term (current) drug therapy
CPT/HCPCS: 36415; 71045; 71275; 80053; 82550; 83735; 83880; 84443; 84484; 84702; 85027; 85379; 85610; 99284; J7040; Q9967

== ENCOUNTER 2020-11-16 05:31 | Emergency (ER) | payer OTHER ==
[2020-11-16 06:03] VITALS: BP 126/88
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
[2020-11-16] MEDS ORDERED: ONDANSETRON 4 MG/2 ML INJ IM ONE (08:17)
[2020-11-16] MEDS ORDERED: fentaNYL 100 MCG/2 ML INJ IM ONE (08:17)
[2020-11-16] MEDS ORDERED: KETOROLAC 60 MG/2 ML INJ IM ONE (08:17)
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
== END 2020-11-16 10:44 | disposition home or self-care (01) ==
LOC: ED 05:31
DX: S39.012A Strain of muscle, fascia and tendon of lower back, initial encounter (principal); S16.1XXA Strain of muscle, fascia and tendon at neck level, initial encounter; Z90.710 Acquired absence of both cervix and uterus; Z98.890 Other specified postprocedural states; Z79.1 Long term (current) use of non-steroidal anti-inflammatories (NSAID); Z79.899 Other long term (current) drug therapy; V49.49XA Driver injured in collision with other motor vehicles in traffic accident, initial encounter; Y93.89 Activity, other specified; Y92.410 Unspecified street and highway as the place of occurrence of the external cause; Y99.8 Other external cause status
CPT/HCPCS: 72040; 72072; 72125; 96372; 99284; J1885; J2405; J3010

== ENCOUNTER 2021-03-28 05:18 | Emergency (ER) | payer OTHER ==
[2021-03-28] MEDS ORDERED: IBUPROFEN 600 MG TAB PO ONE (05:29)
[2021-03-28] MEDS ORDERED: ACETAMINOPHEN 500 MG TAB PO ONE (05:29)
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
[2021-03-28 05:41] VITALS: BP 145/59
--- NOTE | 2021-03-28 05:56 | XRay Report ---
Right shoulder 2 views INDICATION: Right shoulder pain following injury IMPRESSION: No acute fracture or subluxation is identified. Signer Name: Quinn Ruiz MD Signed: 03/28/2021 5:52 AM Workstation Name: [id number]
== END 2021-03-28 06:58 | disposition home or self-care (01) ==
LOC: ED 05:18
DX: S46.911A Strain of unspecified muscle, fascia and tendon at shoulder and upper arm level, right arm, initial encounter (principal); S43.401A Unspecified sprain of right shoulder joint, initial encounter; M25.511 Pain in right shoulder; Z79.899 Other long term (current) drug therapy; Z90.710 Acquired absence of both cervix and uterus; X58.XXXA Exposure to other specified factors, initial encounter; Y93.89 Activity, other specified; Y92.89 Other specified places as the place of occurrence of the external cause; Y99.0 Civilian activity done for income or pay
CPT/HCPCS: 99283